=== PATIENT | female | born 1935 | race African-American/Black ===

== ENCOUNTER 2017-08-03 12:01 | Emergency (ER) | payer MEDICARE, MEDICAID ==
[~2017-08-03] VITALS: Ht 162.6 cm; Wt 74.5 kg
[~2017-08-03 12:01] MED LIST: DIOVAN; HUMLOG; LANTUS; METFORMIN; [UNRECOGNIZED DRUG - OTHER]
[2017-08-03] MEDS ORDERED: MELO-107 PO (12:25)
[2017-08-03] MEDS ORDERED: RANO500T3 PO (12:25)
[2017-08-03] MEDS ORDERED: VALS40TA4 PO (12:25)
[2017-08-03] MEDS ORDERED: OXYB5 PO (12:25)
[2017-08-03] MEDS ORDERED: INSU300I SQ (12:25)
[2017-08-03] MEDS ORDERED: ACETAMINOPHEN 500 MG TABLET PO ONE (13:30)
[2017-08-03 16:02] VITALS: BP 137/88
== END 2017-08-03 16:14 | disposition home or self-care (01) ==
LOC: EMS 12:02
DX: M16.11 Unilateral primary osteoarthritis, right hip (principal); M19.011 Primary osteoarthritis, right shoulder; M85.88 Other specified disorders of bone density and structure, other site; E11.9 Type 2 diabetes mellitus without complications; I10 Essential (primary) hypertension; Z88.2 Allergy status to sulfonamides; Z88.0 Allergy status to penicillin
CPT/HCPCS: 73502; 93970; 99284

== ENCOUNTER 2018-09-03 14:33 | Emergency (ER) | payer MEDICARE, MEDICAID ==
[~2018-09-03] VITALS: Ht 160 cm; Wt 85.9 kg
[~2018-09-03 14:33] MED LIST changes: -DIOVAN; -HUMLOG; +INSU300I SQ; -LANTUS; +MELO-107 PO; -METFORMIN; +OXYB5 PO; +RANO500T3 PO; +VALS40TA4 PO; -[UNRECOGNIZED DRUG - OTHER]
[2018-09-03 14:36] VITALS: BP 131/71
[2018-09-03] MEDS ORDERED: FLUT16H NASAL (14:41)
[2018-09-03] MEDS ORDERED: METF-960 PO (14:41)
[2018-09-03] MEDS ORDERED: ALBU8HFA IH (14:41)
[2018-09-03] MEDS ORDERED: GLIM2 PO (14:41)
[2018-09-03] MEDS ORDERED: HYDR-4455 PO (14:41)
[2018-09-03] MEDS ORDERED: ASPI81 PO (14:41)
[2018-09-03 14:54] LABS: GLUCOSE,POINT OF CARE 288 MG/DL (70-110)
== END 2018-09-03 15:55 | disposition left against medical advice (07) ==
LOC: EMS 14:34
DX: R42 Dizziness and giddiness (principal); R06.02 Shortness of breath; R60.0 Localized edema; E11.9 Type 2 diabetes mellitus without complications; I10 Essential (primary) hypertension; F17.210 Nicotine dependence, cigarettes, uncomplicated; Z53.21 Procedure and treatment not carried out due to patient leaving prior to being seen by health care provider
CPT/HCPCS: 93005

== ENCOUNTER → 2024-07-01 | Outpatient (CLI) | payer OTHER ==
[~2024-07-01] MED LIST changes: +ALBU18HF12 IH; +ASPI-1450 PO; +FLUT16SP NASAL; +GLIM2TAB35 PO; +HYDR-4455 PO; +METF-1211 PO; -OXYB5 PO; +OXYB5TAB20 PO; +RANO500T27 PO; -RANO500T3 PO
== END | disposition home or self-care (01) ==
LOC: RADPV 09:24
PROVIDERS: ATTEND Internal Medicine Nephrology
DX: N28.1 Cyst of kidney, acquired (principal); I12.9 Hypertensive chronic kidney disease with stage 1 through stage 4 chronic kidney disease, or unspecified chronic kidney disease; E11.22 Type 2 diabetes mellitus with diabetic chronic kidney disease; N18.2 Chronic kidney disease, stage 2 (mild); E11.40 Type 2 diabetes mellitus with diabetic neuropathy, unspecified; N17.9 Acute kidney failure, unspecified; E78.49 Other hyperlipidemia; Z72.0 Tobacco use
CPT/HCPCS: 76770